=== PATIENT | female | born 1935 | race Caucasian/White ===

== ENCOUNTER 2018-08-27 07:11 | Day surgery (SDC) | payer MEDICARE ==
[2018-08-27] VITALS (10 sets, daily range): BP systolic 101–122; BP diastolic 52–77
[~2018-08-27] VITALS: Ht 167.6 cm; Wt 89.8 kg
[2018-08-27] MEDS ORDERED: LORazepam 0.5 MG tablet PO PRN (07:40)
[2018-08-27] MEDS ORDERED: normal saline 1000ml 1,000 ML IV SCH (07:40)
[2018-08-27] MEDS ORDERED: methylPREDNISolone sod succ 125mg/2ml vial IV ONE (07:40)
[2018-08-27] MEDS ORDERED: diphenhydrAMINE 25mg capsule PO PRN (07:40)
[2018-08-27] MEDS ORDERED: nitroGLYCERIN 0.4mg SUBLingual tab SL PRN (07:45)
[2018-08-27] MEDS ORDERED: POTA-82 PO (07:58)
[2018-08-27] MEDS ORDERED: MULT-38 PO (07:58)
[2018-08-27] MEDS ORDERED: TRIA1CAP2 PO (07:58)
[2018-08-27] MEDS ORDERED: LEVO200T PO (07:58)
[2018-08-27] MEDS ORDERED: LISI2.5T2 PO (07:58)
[2018-08-27] MEDS ORDERED: CARV3.122 PO (07:58)
[2018-08-27] MEDS ORDERED: CALC500T55 PO (07:58)
[2018-08-27] MEDS ORDERED: ASPI-41 PO (07:58)
[2018-08-27] MEDS ORDERED: CYAN-24 PO (07:58)
[2018-08-27] MEDS ORDERED: SERT25TA5 PO (07:58)
[2018-08-27] MEDS ORDERED: fentaNYL/PF 50MCG/1 ML 2ML syringe ONE ×2 (09:56→10:38)
[2018-08-27] MEDS ORDERED: iohexol 350MG/ML 100ml bottle IV ONE (09:56)
[2018-08-27] MEDS ORDERED: midazolam 2 mg/2 ml injection ONE ×2 (09:56→10:26)
[2018-08-27] MEDS ORDERED: iohexol 350 MG/ML 50ML vial IV ONE ×2 (09:56→10:31)
[2018-08-27] MEDS ORDERED: LIDOcaine 1% (10mg/ml)w/preservative injection 20ml MDV ONE (09:57)
[2018-08-27] MEDS ORDERED: HYDROcodone/acetaminophen 5mg/325mg tablet PO PRN (11:10)
[2018-08-27] MEDS ORDERED: ondansetron/PF 4mg/2ml inj IV PRN (11:10)
[2018-08-27] MEDS ORDERED: proCHLORperazine 10 MG/2 ml inj IV PRN (11:15)
[2018-08-27] MEDS ORDERED: HYDROcodone/acetaminophen 10/325mg tab PO PRN (11:15)
[2018-08-27] MEDS ORDERED: OXAZEpam 15mg capsule PO PRN (11:15)
== END 2018-08-27 16:55 | disposition home or self-care (01) ==
LOC: SSTAY O 07:11
PROVIDERS: ATTEND Internal Medicine Cardiovascular Disease
DX: I25.10 Atherosclerotic heart disease of native coronary artery without angina pectoris (principal); M19.90 Unspecified osteoarthritis, unspecified site; I10 Essential (primary) hypertension; E03.9 Hypothyroidism, unspecified; F32.9 Major depressive disorder, single episode, unspecified; A80.9 Acute poliomyelitis, unspecified; Z95.2 Presence of prosthetic heart valve; Z79.82 Long term (current) use of aspirin; Z91.048 Other nonmedicinal substance allergy status; Z88.3 Allergy status to other anti-infective agents; Z86.69 Personal history of other diseases of the nervous system and sense organs; Z87.891 Personal history of nicotine dependence; Z90.49 Acquired absence of other specified parts of digestive tract; Z96.653 Presence of artificial knee joint, bilateral; Z98.41 Cataract extraction status, right eye; Z98.42 Cataract extraction status, left eye; Z90.710 Acquired absence of both cervix and uterus; Z88.8 Allergy status to other drugs, medicaments and biological substances; Z79.899 Other long term (current) drug therapy; Z98.890 Other specified postprocedural states; Z83.3 Family history of diabetes mellitus
CPT/HCPCS: 93005; 93454; 93567; 99152; 99153; A6257; C1760; C1769; J1644; J2001; J2250; J2930; J3010; J7030; Q0163; Q9967; A4620